=== PATIENT | male | born 1990 | race Hispanic/Latino ===

== ENCOUNTER 2024-01-05 17:16 | Emergency (ER) | payer OTHER, SELFPAY ==
[2024-01-05 17:28] VITALS: BP 114/73; PULSE 109; RESP 16; TEMP 38.1; O2SAT 98
--- NOTE | 2024-01-05 18:01 | ED.EXTPRO ---
HPI - Extremity Problem General Chief complaint: Extremity Problem,Nontraumatic Stated complaint: left lower leg painful Source: patient Mode of arrival: ambulatory Limitations: no limitations History of Present Illness HPI Narrative: 33 y/o male presented for c/o left lower leg redness, swelling and pain worsening over the past 2 weeks. Since onset, he has been seen in the ER where venous doppler showed varicosity, negative for DVT. Pain and redness to sellers has worsened since the doppler. Pain worse when walking, rates 7/10. Pain radiates up the leg. Denies numbness, tingling or weakness of the leg/foot. Says he is scheduled to follow up regarding varicose veins. Related Data Allergies Allergy/AdvReac Type Severity Reaction Status Date / Time No Known Allergies Allergy Unverified 01/05/24 18:03 Review of Systems Review of Systems: CONSTITUTIONAL: Denies body aches, fever, chills, or sweats. EYES: Denies visual changes, redness, or discharge. ENT: Denies rhinorrhea, congestion CARDIOVASCULAR: Denies chest pain, palpitations, or edema. RESPIRATORY: Denies cough or dyspnea. GASTROINTESTINAL: Denies abdominal pain, nausea, vomiting, or diarrhea. SKIN: Reports redness, swelling and pain LLE MUSCULOSKELETAL: Denies back pain, joint pain, or myalgia. NEUROLOGIC: Denies numbness, tingling, or weakness. [facility] Family History Family History Mother Asthma Father Asthma Grandparent Acute myocardial infarction Breast cancer Cerebrovascular accident Social History Social History Social History: Live with fileroy? 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 Please see nursing chart for further information. There is no relevant family history pertinent to the presenting complaint Exam Narrative: GENERAL: Well-appearing ENT: Mucous membranes moist. Oropharynx without edema, erythema or lesions. CHEST: Clear to auscultation. HEART: Regular rate and rhythm. SKIN: Warm, dry. Left sellers with area of erythema, warmth and tenderness with palpation approx 9cm diameter, Medial foot/heel bruising noted, dark discoloration to varicose veins noted proximal to area of induration. Left foot and ankle with 2+ pitting edema. Negative homans sign, nontender calf with palpation. NEURO: Alert and oriented x3. Course Course Emergency Course: Patient is aware of diagnosis, understands and agrees to treatment plan. Anticipatory guidance given. Patient agrees to follow-up as directed and is aware of reasons to seek care at the emergency department. Portions of this record may have been created with voice recognition software Level of Care: Express Care Visit Vital Signs Vital signs: Vital Signs Temperature 100.6 F H 01/05/24 17:28 Pulse Rate 109 H 01/05/24 17:28 Respiratory Rate 16 01/05/24 17:28 Blood Pressure 114/73 01/05/24 17:28 Pulse Oximetry 98 01/05/24 17:28 Oxygen Delivery Room Air 01/05/24 17:28 Temperature 100.6 F H 01/05/24 17:28 Pulse Rate 109 H 01/05/24 17:28 Respiratory Rate 16 01/05/24 17:28 Blood Pressure 114/73 01/05/24 17:28 Pulse Oximetry 98 01/05/24 17:28 Oxygen Delivery Room Air 01/05/24 17:28 Reviewed Transfer Transfered to: [facility] Transportation: Other ( private vehicle) Transfer rationale:
== END 2024-01-05 18:06 | disposition short-term general hospital (02) ==
PROVIDERS: Emergency Provider Nurse Practitioner Family; PCP Family Medicine Adolescent Medicine
DX: R22.42 Localized swelling, mass and lump, left lower limb (principal); F17.210 Nicotine dependence, cigarettes, uncomplicated; F12.90 Cannabis use, unspecified, uncomplicated
CPT/HCPCS: 99212; G0463

== ENCOUNTER 2024-04-04 15:34 | Emergency (ER) | payer OTHER, SELFPAY ==
--- NOTE | 2024-04-04 15:35 | ED.MALEGU ---
HPI - Male Genitourinary General Chief complaint: Urogenital-Male Stated complaint: urinary issue Time Seen by Provider: 04/04/24 15:35 Source: patient Mode of arrival: ambulatory Limitations: no limitations History of Present Illness HPI Narrative: Darvin is a 33-year-old male patient presenting to the clinic today with complaints of possible UTI. He reports this morning he developed burning with urination, frequency, urgency, and low urine output. He denies any concern for any sexually transmitted infections. He denies any fever, chills, or body aches. He denies any back pain. Does have some suprapubic pressure. No penile discharge. No history of prostatitis or BPH. History of kidney stones and asthma. Related Data Allergies Allergy/AdvReac Type Severity Reaction Status Date / Time No Known Allergies Allergy Verified 04/04/24 15:38 Review of Systems Review of Systems: Pertinent positives per HPI. Patient denies any fever, chills, rash, headache, visual changes, dizziness, cough, runny nose, sore throat, shortness of breath, chest pain, palpitations, nausea, vomiting, diarrhea, constipation. [facility] Family History Family History Mother Asthma Father Asthma Grandparent Acute myocardial infarction Breast cancer Cerebrovascular accident Social History Social History Social History: Live with daphne? 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 There is no relevant family history pertinent to the patient complaint. Exam Narrative: General: Well-developed, obese, in no apparent distress. Head: Normocephalic, atraumatic. Cardio: Regular rate and rhythm, s1 and s2 normal, no murmur appreciated. Resp: Clear to auscultation bilaterally, no rhonchi, rales, wheezing or rubs. Abdomen: Soft, pliable, bowel sounds present in all quadrants, suprapubic tender to palpation, no organomegly, no CVAT tenderness. Course Course Emergency Course: Portions of this record may have been created with voice recognition software. Level of Care: Express Care Visit Vital Signs Vital signs: Vital Signs Temperature 37.7 C H 04/04/24 15:42 Pulse Rate 91 04/04/24 15:42 Respiratory Rate 18 04/04/24 15:42 Blood Pressure 139/81 04/04/24 15:42 Pulse Oximetry 99 04/04/24 15:42 Oxygen Delivery Room Air 04/04/24 15:42 Temperature 37.7 C H 04/04/24 15:42 Pulse Rate 91 04/04/24 15:42 Respiratory Rate 18 04/04/24 15:42 Blood Pressure 139/81 04/04/24 15:42 Pulse Oximetry 99 04/04/24 15:42 Oxygen Delivery Room Air 04/04/24 15:42 Vital signs reviewed MDM - Male Genitourinary MDM Narrative Medical decision making narrative: At the time of visit patient is resting comfortably on the exam table. Patient appears to be nontoxic. Labs: Urinalysis positive for UTI. We will send urine for culture Plan: I suspect patient has acute urinary tract infection. Prescription for Bactrim DS was sent to the pharmacy. Supportive measures were discussed with the patient and they voiced understanding discharge instructions and agrees to treatment plan. Return precautions reviewed Differential Diagnosis Differential diagnosis: Likely urinary tract infection, priapism, urethritis, epididymitis, genital herpes simplex, prostatitis, acute retention of urine and inguinal her
[2024-04-04 15:42] VITALS: BP 139/81; PULSE 91; RESP 18; TEMP 37.7; O2SAT 99
[2024-04-04 16:05] LABS: EDUAAPPEAR Clear; EDUABILI 1+ (Negative); EDUABLOOD 2+ (Negative); EDUACOLOR1 Amber; EDUAGLUCOSE Negative (Negative); EDUAKETONE Trace (Negative); EDUALEUKO Trace (Negative); EDUANITRATE Positive (Negative); EDUAPROTEIN 3+ (Negative); EDUAUROBILI 0.2
== END 2024-04-04 16:10 | disposition home or self-care (01) ==
PROVIDERS: Emergency Provider Nurse Practitioner Family; PCP Family Medicine Adolescent Medicine
DX: N30.01 Acute cystitis with hematuria (principal); B96.89 Other specified bacterial agents as the cause of diseases classified elsewhere; Z87.442 Personal history of urinary calculi; J45.909 Unspecified asthma, uncomplicated; F17.210 Nicotine dependence, cigarettes, uncomplicated; F12.90 Cannabis use, unspecified, uncomplicated
CPT/HCPCS: 81003; 87077; 87086; 87088; 87186; 99213; G0463